=== PATIENT | female | born 1960 | race Caucasian/White ===

== ENCOUNTER 2018-04-18 11:48 | Day surgery (SDC) | payer BC ==
[2018-04-18] MEDS ORDERED: PROPOFOL 40 ML (13:10)
[2018-04-18] MEDS ORDERED: LIDOCAINE 2% (SDV) 5 ML INJ (13:10)
[2018-04-18] MEDS ORDERED: hydrALAzine 20 MG INJ IV (14:00)
[2018-04-18] MEDS ORDERED: LABETALOL HCL 20MG INJ IV (14:00)
[2018-04-18] MEDS ORDERED: FENTAnyl 50 MCG/ML VIAL IV (14:00)
[2018-04-18] MEDS ORDERED: ONDANSETRON 4 MG INJ IV (14:00)
[2018-04-18] MEDS ORDERED: DIPHENHYDRAMINE 50 MG INJ IV (14:00)
== END 2018-04-18 14:53 | disposition home or self-care (01) ==
LOC: GIL 11:48
DX: K22.70 Barrett's esophagus without dysplasia (principal); I10 Essential (primary) hypertension; E78.5 Hyperlipidemia, unspecified; E03.9 Hypothyroidism, unspecified; E11.9 Type 2 diabetes mellitus without complications; J44.9 Chronic obstructive pulmonary disease, unspecified; E66.9 Obesity, unspecified; Z68.35 Body mass index [BMI] 35.0-35.9, adult
CPT/HCPCS: 43239; 82962; 88305; 88313